=== PATIENT | female | born 1955 | race Hispanic/Latino ===

== ENCOUNTER 2019-07-18 09:24 | Inpatient (IN) | payer OTHER ==
[2019-07-18] VITALS (19 sets, daily range): BP systolic 108–146; BP diastolic 55–78
[~2019-07-18] VITALS: Ht 154.9 cm; Wt 83.2 kg
[2019-07-18] MEDS ORDERED: ACETAMINOPHEN 325 MG TAB ONE (11:36)
[2019-07-18 11:39] LABS: PARTIAL THROMBOPLASTIN TIME 30.1 SEC (26.3-35.5); PROTHROMBIN TIME 10.5 SEC (9.6-11.6)
[2019-07-18] MEDS ORDERED: ACETAMINOPHEN 325 MG TAB PO SCH (11:45)
[2019-07-18] MEDS ORDERED: ONDANSETRON HCL 4 MG/2 ML VIAL ONE (12:14)
[2019-07-18] MEDS ORDERED: ONDANSETRON HCL 4 MG/2 ML VIAL IVP PRN (12:30)
--- NOTE | 2019-07-18 13:43 | NUR ---
DC PLAN VISITED WITH PATIENT. PATIENT LIVES WITH DAUGHTER. PATIENT HAS NO SERVICES OR DME'S. FEELS SAFE TO RETURN HOME. PATIENT GOES TO DR. GROVES IN THE [facility]. FEELS SAFE TO RETURN HOME. Addendum: 07/18/19 at 1344 by ADRIAN LUDWIG RN CM Amended: Links added.
[2019-07-18] MEDS ORDERED: SODIUM BICARB 8.4% 50ML SYRINGE IVP ONE (14:23)
[2019-07-18] MEDS ORDERED: CALCIUM CHLORIDE 100 MG/ML 10 ML SYG IVP ONE (14:23)
[2019-07-18] MEDS ORDERED: AMINOCAPROIC ACID 250 MG/ML 20 ML VIAL IV ONE (14:23)
[2019-07-18] MEDS ORDERED: PHENYLEPHRINE HCL 10 MG/ML 1ML VIAL IV ONE (14:23)
[2019-07-18] MEDS ORDERED: MANNITOL 25% 50ML VIAL IV ONE (14:23)
[2019-07-18] MEDS ORDERED: HEPARIN SODIUM 1000UNIT/ML 10ML VIAL IV ONE (14:23)
[2019-07-18] MEDS ORDERED: MAGNESIUM SULFATE 1 GM/2 ML VIAL IM ONE (14:23)
[2019-07-18] MEDS ORDERED: ALBUMIN (HUMAN) 25% 50 ML IV ONE (14:23)
[2019-07-18] MEDS ORDERED: LIDOCAINE PF 2% 5ML ABBOJECT IVP ONE (14:23)
[2019-07-18] MEDS ORDERED: BIVALIRUDIN 250 MG/VIAL IV ONE (17:13)
[2019-07-18] MEDS ORDERED: NITROGLYCERIN 5 MG/ML 10 ML VIAL IV ONE (17:13)
[2019-07-18] MEDS ORDERED: MIDAZOLAM HCL 1 MG/ML 2ML VIAL ONE (17:14)
[2019-07-18] MEDS ORDERED: IOHEXOL-350 50ML VIAL IV ONE ×2 (17:14→18:21)
[2019-07-18] MEDS ORDERED: IOHEXOL 350 MG/ML 100ML INFUS..BTL IV ONE (17:14)
[2019-07-18] MEDS ORDERED: LIDOCAINE HCL 2% 20ML ONE (17:14)
[2019-07-18] MEDS ORDERED: FENTANYL CITRATE PF 50 MCG/1 ML 2ML VIAL ONE (17:14)
[2019-07-18] MEDS ORDERED: METHYLPREDNISOLONE SOD SUCC 125MG/2ML VIAL ONE (17:36)
[2019-07-18] MEDS ORDERED: NICARDIPINE HCL 25 MG/10 ML ML IV ONE (17:44)
[2019-07-18] MEDS ORDERED: HEPARIN SODIUM 1000UNIT/ML 10ML VIAL ONE (17:44)
[2019-07-18] MEDS ORDERED: ATROPINE SULFATE 0.1 MG/ML 10 ML SYG IVP ONE (18:26)
[2019-07-18] MEDS ORDERED: NITROGLYCERIN 50 MG/D5% WATER 1 BOT ONE (18:39)
[2019-07-18] MEDS ORDERED: PROTAMINE SULFATE 10 MG/ML 25ML VIAL IV ONE (18:46)
[2019-07-18] MEDS ORDERED: LABETALOL 20 MG/4 ML DISP.SYRIN IV ONE (19:01)
[2019-07-18] MEDS ORDERED: CEFAZOLIN SODIUM 1 GM VIAL IVP PRN (21:15)
[2019-07-18] MEDS ORDERED: INSULIN HUMULIN R 100 UNIT/ML 3ML ONE (21:31)
[2019-07-18] MEDS ORDERED: SODIUM CHLORIDE 0.9% 1000ML 1,000 ML IV ONE (21:31)
[2019-07-18] MEDS ORDERED: LABETALOL HCL 5 MG/ML 20ML VIAL IV ONE (21:58)
[2019-07-19] VITALS (25 sets, daily range): BP systolic 100–140; BP diastolic 45–71
[2019-07-19 04:03] LABS: HEMATOCRIT 34.9 % (36-48); MEAN CORPUSCULAR HEMOGLOBIN 26.9 pg (27.0-33.0); MEAN CORPUSCULAR HGB CONC 34.3 g/dL (32.0-36.0); MEAN CORPUSCULAR VOLUME 78.6 fL (79-99); PLATELET COUNT (AUTO) 170 K/uL (130-400); RED BLOOD CELL COUNT(AUTO) 4.44 MIL/uL (4.00-5.50); RED CELL DISTRIBUTION WIDTH 13.5 % (11.0-15.5); WHITE BLOOD COUNT (AUTO) 7.4 K/uL (4.8-10.8)
[2019-07-19 04:07] LABS: HEMOGLOBIN A1C 9.6 % (4.0-6.0)
[2019-07-19 04:15] LABS: INR 1.01 (0.85-1.15); PARTIAL THROMBOPLASTIN TIME 28.2 SEC (26.3-35.5); PROTHROMBIN TIME 10.6 SEC (9.6-11.6)
[2019-07-19 04:16] LABS: B-TYPE NATRIURETIC PEPTIDE 134 pg/mL (0-100)
[2019-07-19 04:19] LABS: CREATININE 0.9 mg/dL (0.5-1.5); POTASSIUM 3.9 mmol/L (3.5-5.1)
[2019-07-19] MEDS ORDERED: INSULIN HUMULIN R 100 UNIT/ML 3ML SQ SCH (07:30)
[2019-07-19] MEDS ORDERED: NOREPINEPHRINE BITARTRATE 8 MG/NS 250ML IV SCH ×2 (12:45)
[2019-07-19] MEDS ORDERED: SODIUM CHLORIDE 0.9% 1000ML 1,000 ML IV ONE (12:55)
[2019-07-19] MEDS ORDERED: EPINEPHRINE 8 MG in SODIUM CHLORIDE 0.9% 250 ML IV SCH (13:00)
[2019-07-19] MEDS ORDERED: AMINOCAPROIC ACID 15,000 MG in SODIUM CHLORIDE 0.9% 500ML 500 ML IV SCH (13:00)
--- NOTE | 2019-07-19 15:10 | NUR ---
patient pt c/o chest pain that lasted 2 minutes. vs stable , dr. gutierrez notified further orders given and will be carried out. family at bedside. dr. gutierrez evaluated patient. patient connected to bedside monitor
[2019-07-19] MEDS ORDERED: MIDAZOLAM HCL 1 MG/ML 2ML VIAL ONE ×2 (15:19→16:44)
[2019-07-19] MEDS ORDERED: PAPAVERINE HCL 30 MG/ML 2ML VIAL ONE (15:39)
[2019-07-19] MEDS ORDERED: BACITRACIN 50,000 UNIT VIAL ONE (15:40)
[2019-07-19] MEDS ORDERED: NITROGLYCERIN 50 MG/D5% WATER 1 BOT ONE (16:24)
[2019-07-19] MEDS ORDERED: SODIUM BICARB 50MEQ 50ML VIAL ONE (16:24)
[2019-07-19] MEDS ORDERED: ROCURONIUM 10MG/1ML SYR 10 MG/ML ML ONE ×2 (16:28→16:44)
[2019-07-19] MEDS ORDERED: MIDAZOLAM HCL 1 MG/ML 2ML VIAL IVPB SCH (16:30)
[2019-07-19] MEDS ORDERED: HEPARIN SODIUM 1000UNIT/ML 10ML VIAL ONE ×2 (16:43→18:54)
[2019-07-19] MEDS ORDERED: PROTAMINE SULFATE 10 MG/ML 25ML VIAL IV ONE (16:43)
[2019-07-19] MEDS ORDERED: LIDOCAINE PF 2% 5ML ABBOJECT ONE (16:43)
[2019-07-19] MEDS ORDERED: ESMOLOL HCL 10 MG/ML 10 ML VIAL ONE (16:43)
[2019-07-19] MEDS ORDERED: EPINEPHRINE 1 MG/ML AMPULE ONE (16:43)
[2019-07-19] MEDS ORDERED: AMINOCAPROIC ACID 250 MG/ML 20 ML VIAL IV ONE (16:43)
[2019-07-19] MEDS ORDERED: NOREPINEPHRINE BITARTRATE 1 MG/1 ML ML IV ONE (16:43)
[2019-07-19] MEDS ORDERED: PROPOFOL 10 MG/ML 20ML VIAL IV ONE (16:44)
[2019-07-19] MEDS ORDERED: FENTANYL CITRATE PF 50 MCG/1 ML 5ML AMP IV ONE ×3 (16:44→19:27)
[2019-07-19] MEDS ORDERED: ETOMIDATE 2 MG/ML 10 ML VIAL ONE (16:44)
[2019-07-19] MEDS ORDERED: AMIODARONE HCL 50 MG/ML 3 ML VIAL ONE (16:46)
[2019-07-19 17:27] LABS: ABG BASE EXCESS -2.1 mmol/L (-2.0-3.0); ABG HCO3 23.3 mmol/L (21.0-28.0); ABG OXYGEN SATURATION 99.3 % (95.0-99.0); ABG PCO2 42 mmHg (32-45)
[2019-07-19] MEDS ORDERED: DELNIDO FORMULA 0 BAG IV ONE (17:35)
[2019-07-19 18:50] LABS: ABG BASE EXCESS -1.4 mmol/L (-2.0-3.0); ABG HCO3 22.3 mmol/L (21.0-28.0); ABG OXYGEN SATURATION 98.8 % (95.0-99.0); ABG PCO2 33 mmHg (32-45)
[2019-07-19 19:15] LABS: ABG BASE EXCESS -4.4 mmol/L (-2.0-3.0); ABG HCO3 19.3 mmol/L (21.0-28.0); ABG OXYGEN SATURATION 98.8 % (95.0-99.0); ABG PCO2 29 mmHg (32-45)
[2019-07-19] MEDS ORDERED: METOPROLOL TARTRATE 1 MG/ML 5ML VIAL IV ONE (19:30)
[2019-07-19 19:33] LABS: ABG BASE EXCESS -1.9 mmol/L (-2.0-3.0); ABG HCO3 19.2 mmol/L (21.0-28.0); ABG OXYGEN SATURATION 98.7 % (95.0-99.0); ABG PCO2 21 mmHg (32-45)
[2019-07-19 19:52] LABS: ABG BASE EXCESS -5.7 mmol/L (-2.0-3.0); ABG HCO3 18.1 mmol/L (21.0-28.0); ABG OXYGEN SATURATION 98.8 % (95.0-99.0); ABG PCO2 29 mmHg (32-45)
[2019-07-19] MEDS ORDERED: FENTANYL CITRATE PF 50 MCG/1 ML 2ML VIAL ONE (20:02)
[2019-07-19] MEDS ORDERED: SODIUM CHLORIDE 0.9% 500ML 500 ML IV SCH (20:09)
[2019-07-19] MEDS ORDERED: MAGNESIUM 2GM PREMIX 50ML 50 ML IV PRN (20:15)
[2019-07-19] MEDS ORDERED: TRAMADOL HCL 50 MG TABLET PO PRN ×2 (20:15)
[2019-07-19] MEDS ORDERED: EPINEPHRINE 8 MG in DEXTROSE 5%-WATER 250 ML IV PRN (20:15)
[2019-07-19] MEDS ORDERED: DEXTROSE 50%-WATER 50 ML DISP.SYRIN IV PRN (20:15)
[2019-07-19] MEDS ORDERED: ACETAMINOPHEN 325 MG TAB PO PRN ×2 (20:15)
[2019-07-19] MEDS ORDERED: POTASSIUM PHOS 15 mMOL+NS250ML 250 ML IV PRN (20:15)
[2019-07-19] MEDS ORDERED: ONDANSETRON HCL 4 MG/2 ML VIAL IV PRN (20:15)
[2019-07-19] MEDS ORDERED: PROPOFOL 1000 MG/100 ML 100 ML IV PRN (20:15)
[2019-07-19] MEDS ORDERED: GLUCAGON 1MG KIT 1 MG ML IM PRN (20:15)
[2019-07-19] MEDS ORDERED: NOREPINEPHRINE 4MG/NS 250ML 250 ML IV PRN (20:15)
[2019-07-19] MEDS ORDERED: ACETAMINOPHEN 650 MG SUPPOSITORY RC PRN (20:15)
[2019-07-19] MEDS ORDERED: NITROGLYCERIN 50 MG/D5% WATER 250 BOT IV SCH (20:15)
[2019-07-19] MEDS ORDERED: SODIUM CHLORIDE 0.9% 1000ML 1,000 ML IV SCH (20:15)
[2019-07-19] MEDS ORDERED: SODIUM CHLORIDE 0.9% 250 ML IV PRN (20:15)
[2019-07-19] MEDS ORDERED: AMINOCAPROIC ACID 15,000 MG in SODIUM CHLORIDE 0.9% 250 ML IV SCH (20:15)
[2019-07-19] MEDS ORDERED: MORPHINE SULFATE 2 MG/ML 1ML SYG IV PRN (20:15)
[2019-07-19] MEDS ORDERED: SODIUM CHLORIDE 0.9% 10 ML VIAL IVP PRN (20:15)
[2019-07-19] MEDS ORDERED: ALBUMIN (HUMAN) 5% 250 ML IV PRN (20:15)
[2019-07-19] MEDS ORDERED: MORPHINE SULFATE 4 MG/1ML SYG IV PRN (20:15)
[2019-07-19 21:01] LABS: ABG BASE EXCESS -0.3 mmol/L (-2.0-3.0); ABG HCO3 23.2 mmol/L (21.0-28.0); ABG OXYGEN SATURATION 96.2 % (95.0-99.0); ABG PCO2 34 mmHg (32-45)
[2019-07-19 21:23] LABS: HEMATOCRIT 33.5 % (36-48); MEAN CORPUSCULAR HEMOGLOBIN 27.2 pg (27.0-33.0); MEAN CORPUSCULAR HGB CONC 33.7 g/dL (32.0-36.0); MEAN CORPUSCULAR VOLUME 80.6 fL (79-99); PLATELET COUNT (AUTO) 125 K/uL (130-400); RED BLOOD CELL COUNT(AUTO) 4.15 MIL/uL (4.00-5.50); RED CELL DISTRIBUTION WIDTH 13.6 % (11.0-15.5); WHITE BLOOD COUNT (AUTO) 22.6 K/uL (4.8-10.8)
[2019-07-19 21:35] LABS: CREATININE 0.8 mg/dL (0.5-1.5); INR 1.29 (0.85-1.15); MAGNESIUM 3.1 mg/dL (1.80-2.40); PARTIAL THROMBOPLASTIN TIME 25.7 SEC (26.3-35.5); PHOSPHORUS 3.7 mg/dL (2.5-4.9); POTASSIUM 3.9 mmol/L (3.5-5.1); PROTHROMBIN TIME 13.4 SEC (9.6-11.6)
[2019-07-19] MEDS: CALCIUM GLUCONATE 1 GM in SODIUM CHLORIDE 0.9% 50 ML IV PRN ×2 (21:53→22:44)
[2019-07-19] MEDS: FAMOTIDINE/PF 20 MG/2 ML VIAL IV SCH (21:57)
[2019-07-19] MEDS: INSULIN REGULAR, HUMAN 3ML 100 UNIT in SODIUM CHLORIDE 0.9% 99 ML IV SCH ×2 (21:59)
[2019-07-19 22:39] LABS: ABG BASE EXCESS -3.3 mmol/L (-2.0-3.0); ABG HCO3 20.7 mmol/L (21.0-28.0); ABG OXYGEN SATURATION 98.9 % (95.0-99.0); ABG PCO2 34 mmHg (32-45)
[2019-07-19] MEDS: POTASSIUM CHLORIDE 20MEQ/100ML 100 ML IV PRN (22:43)
[2019-07-19] MEDS: SODIUM BICARB 50MEQ 50ML VIAL IV PRN (22:44)
[2019-07-20] VITALS (71 sets, daily range): BP systolic 70–158; BP diastolic 31–81
[2019-07-20 00:21] LABS: ABG OXYGEN SATURATION 97.5 % (95.0-99.0); ABG PCO2 36 mmHg (32-45)
[2019-07-20] MEDS: SODIUM BICARB 50MEQ 50ML VIAL IV PRN (00:25)
[2019-07-20] MEDS: CALCIUM GLUCONATE 1 GM in SODIUM CHLORIDE 0.9% 50 ML IV PRN (00:25)
[2019-07-20 00:57] LABS: ABG BASE EXCESS -0.2 mmol/L (-2.0-3.0); ABG HCO3 25.2 mmol/L (21.0-28.0); ABG PCO2 44 mmHg (32-45)
[2019-07-20] MEDS: CEFAZOLIN SODIUM 1 GM VIAL IV SCH ×3 (01:05→17:24)
[2019-07-20 01:47] LABS: ABG BASE EXCESS 1.5 mmol/L (-2.0-3.0); ABG HCO3 26.6 mmol/L (21.0-28.0); ABG OXYGEN SATURATION 98.2 % (95.0-99.0); ABG PCO2 43 mmHg (32-45)
[2019-07-20] MEDS ORDERED: ALBUMIN (HUMAN) 5% 250 ML IV ONE (01:56)
[2019-07-20 03:39] LABS: ABG BASE EXCESS 1.4 mmol/L (-2.0-3.0); ABG HCO3 26.3 mmol/L (21.0-28.0); ABG OXYGEN SATURATION 97.2 % (95.0-99.0); ABG PCO2 42 mmHg (32-45)
[2019-07-20 04:50] LABS: BASOPHILS % (AUTO) 0.2 % (0.0-5.0); HEMATOCRIT 33.5 % (36-48); LYMPHOCYTES % (AUTO) 9.3 % (21.0-51.0); MEAN CORPUSCULAR HEMOGLOBIN 30.7 pg (27.0-33.0); MEAN CORPUSCULAR VOLUME 90.2 fL (79-99); MONOCYTES % (AUTO) 11.9 % (3.0-13.0); NEUTROPHILS % (AUTO) 78.6 % (40.0-77.0); NUCLEATED RED BLOOD CELLS 0.1 % (0.0-0.19); PLATELET COUNT (AUTO) 115 K/uL (130-400); RED BLOOD CELL COUNT(AUTO) 3.71 MIL/uL (4.00-5.50); RED CELL DISTRIBUTION WIDTH 13.6 % (11.0-15.5); WHITE BLOOD COUNT (AUTO) 10.1 K/uL (4.8-10.8)
[2019-07-20 05:04] LABS: INR 1.12 (0.85-1.15); PARTIAL THROMBOPLASTIN TIME 47.3 SEC (26.3-35.5); PLATELET MORPHOLOGY COMMENT ADEQUATE; PROTHROMBIN TIME 11.7 SEC (9.6-11.6)
[2019-07-20 05:11] LABS: CREATININE 1.3 mg/dL (0.5-1.5); MAGNESIUM 1.8 mg/dL (1.80-2.40); PHOSPHORUS 2.6 mg/dL (2.5-4.9); POTASSIUM 4.2 mmol/L (3.5-5.1)
[2019-07-20] MEDS ORDERED: CALCIUM GLUCONATE 1 GM/10 ML VIAL IV ONE (06:00)
[2019-07-20] MEDS: ASPIRIN 325MG EC TAB 325 MG TABLET.DR PO SCH (09:56)
[2019-07-20] MEDS: FAMOTIDINE/PF 20 MG/2 ML VIAL IV SCH ×2 (09:56→19:47)
[2019-07-20] MEDS: INSULIN REGULAR, HUMAN 3ML 100 UNIT in SODIUM CHLORIDE 0.9% 99 ML IV SCH ×2 (10:51)
[2019-07-20] MEDS: MIDODRINE HCL 5 MG TABLET PO SCH ×2 (13:39→19:47)
--- NOTE | 2019-07-20 17:15 | NUR ---
SPOKE WITH PATIENT AND UNABLE TO INFORM ME OF HOME MEDS SHE TAKES. NO FAMILY PRESENT. WILL FOLLOW UP.
[2019-07-20] MEDS: ATORVASTATIN CALCIUM 40 MG TABLET PO SCH (19:47)
[2019-07-21] VITALS (22 sets, daily range): BP systolic 101–169; BP diastolic 38–76
[2019-07-21 04:17] LABS: BASOPHILS % (AUTO) 0.4 % (0.0-5.0); EOSINOPHILS % (AUTO) 0.1 % (0.0-8.0); HEMATOCRIT 26.7 % (36-48); MEAN CORPUSCULAR HEMOGLOBIN 27.1 pg (27.0-33.0); MEAN CORPUSCULAR HGB CONC 33.9 g/dL (32.0-36.0); MONOCYTES % (AUTO) 6.5 % (3.0-13.0); NUCLEATED RED BLOOD CELLS 0.2 % (0.0-0.19); PLATELET COUNT (AUTO) 102 K/uL (130-400); RED BLOOD CELL COUNT(AUTO) 3.34 MIL/uL (4.00-5.50); RED CELL DISTRIBUTION WIDTH 13.9 % (11.0-15.5)
[2019-07-21 04:34] LABS: ALBUMIN 2.5 g/dL (3.5-5.0); BILIRUBIN,TOTAL 0.8 mg/dL (0.2-1.0); CREATININE 0.8 mg/dL (0.5-1.5); POTASSIUM 3.3 mmol/L (3.5-5.1); TOTAL PROTEIN, SERUM 5.6 g/dL (6.0-8.3)
[2019-07-21] MEDS: POTASSIUM CHLORIDE 20MEQ/100ML 100 ML IV PRN ×4 (05:50→20:04)
[2019-07-21] MEDS ORDERED: METOPROLOL TARTRATE 25 MG TAB PO SCH (09:00)
[2019-07-21] MEDS: FAMOTIDINE/PF 20 MG/2 ML VIAL IV SCH ×2 (09:59→21:35)
[2019-07-21] MEDS: MIDODRINE HCL 5 MG TABLET PO SCH (09:59)
[2019-07-21] MEDS: ASPIRIN 325MG EC TAB 325 MG TABLET.DR PO SCH (09:59)
--- NOTE | 2019-07-21 11:00 | NUR ---
Physician Rounding Dr. Scales at bedside around 1140. Updated on the patients status emphasized on the neuro states of being lethargic and weak strength. He gave verbal orders as the were imputed into the system. Also ordered for all lines to be removed a-line, chest tubes, nickerson, and central line Addendum: 07/21/19 at 1349 by CAROLYN WOODS RN Dr. Steven rounded at bedside around 0930. Informed about the patients labs, neuro status, and plan of care. Addendum: 07/21/19 at 1353 by CAROLYN WOODS RN Dr. Colin rounded around 1200. Was notified about the patients status and neuro status also expressed some concern about possible aspiration. He ordered an abg and for speech to follow up tomorrow morning.
[2019-07-21] MEDS: INSULIN HUMULIN R 100 UNIT/ML 3ML SQ SCH ×3 (11:30→21:00)
[2019-07-21 12:20] LABS: ABG HCO3 30.1 mmol/L (21.0-28.0); ABG OXYGEN SATURATION 87.9 % (95.0-99.0); ABG PCO2 46 mmHg (32-45)
[2019-07-21] MEDS: FUROSEMIDE 10 MG/ML 2ML VIAL IV SCH (14:04)
--- NOTE | 2019-07-21 19:00 | NUR ---
ASSESSMENT ASSUMED CARE. ALTERED MENTAL STATUS. NOT FOLLOWING COMMANDS. REPEATS SAME WORDS OVER AND OVER AGAIN. REORIENTED TO PLACE, TIME AND SITUATION. PULLS OFF VENTI MASK. PULLS HERSELF BY HOLDING ONTO BED RAILS. STERNAL PRECAUTIONS IN PLACE. REPOSITIONED FOR COMFORT. BEDSIDE MONITORING. SINUS TACH HR 106. WILL CONTINUE TO MONITOR.
[2019-07-21] MEDS ORDERED: LIDOCAINE HCL-MPF 1% 2ML VIAL ONE (19:54)
[2019-07-21] MEDS: METOPROLOL TARTRATE 25 MG TAB PO SCH (21:35)
[2019-07-21] MEDS: ATORVASTATIN CALCIUM 40 MG TABLET PO SCH (21:35)
[2019-07-22] VITALS (12 sets, daily range): BP systolic 98–156; BP diastolic 44–75
[2019-07-22] MEDS: FUROSEMIDE 10 MG/ML 2ML VIAL IV SCH (00:52)
[2019-07-22 05:38] LABS: BASOPHILS % (AUTO) 0.3 % (0.0-5.0); EOSINOPHILS % (AUTO) 0.1 % (0.0-8.0); LYMPHOCYTES % (AUTO) 11.1 % (21.0-51.0); MEAN CORPUSCULAR HEMOGLOBIN 28.2 pg (27.0-33.0); MEAN CORPUSCULAR VOLUME 82.9 fL (79-99); NEUTROPHILS % (AUTO) 82.5 % (40.0-77.0); PLATELET COUNT (AUTO) 107 K/uL (130-400); RED BLOOD CELL COUNT(AUTO) 3.13 MIL/uL (4.00-5.50); RED CELL DISTRIBUTION WIDTH 13.7 % (11.0-15.5); WHITE BLOOD COUNT (AUTO) 12.4 K/uL (4.8-10.8)
[2019-07-22 05:54] LABS: CREATININE 0.8 mg/dL (0.5-1.5); POTASSIUM 4.1 mmol/L (3.5-5.1)
--- NOTE | 2019-07-22 07:00 | NUR ---
PT RECEIVED IN BEDSIDE CHAIR, ALERT TO SELF AND . PT STATES SHE IS IN HOSPITAL. PER REPORT PHYSICIANS ON CASE ARE AWARE OF MENTAL STATUS. PT IS POST #3 CABG X2. ALL LINES HAVE BEEN DISCONTINUED. DRESSING TO STERNAL INCISION IS DRY AND INTACT. TELE WITH SR 98, O2 4 L VIA NC. POC FOR TODAY TO INCLUDE SPEECH EVALUATION. WILL CONT TO MONITOR CLOSELY. Addendum: 07/22/19 at 1030 by ALISSON VALDVIIA RN RN PATIENT IS DUE TO VOID BY 1500.
[2019-07-22] MEDS: INSULIN HUMULIN R 100 UNIT/ML 3ML SQ SCH ×4 (07:30→21:14)
--- NOTE | 2019-07-22 08:20 | NUR ---
MD ROUNDS DR. MOREL IN TO SEE PATIENT. NEW ORDERS RECEIVED TO BE RONNY OUT.
--- NOTE | 2019-07-22 08:50 | NUR ---
ROUNDS DR. LEVY IN TO SEE PATIENT. MD NOTED A CHANGE FAR MENTAL STATUS. I UPDATED HIM ON NEW ORDERS FROM DR. MOREL.
[2019-07-22] MEDS: FUROSEMIDE 20 MG TABLET PO SCH ×2 (08:56→17:16)
[2019-07-22] MEDS: ASPIRIN 81MG TAB.CHEW PO SCH (08:57)
[2019-07-22] MEDS: METOPROLOL TARTRATE 25 MG TAB PO SCH ×2 (08:57→20:29)
[2019-07-22] MEDS: ENOXAPARIN SODIUM 40 MG/0.4 ML SYRINGE SQ SCH (08:58)
[2019-07-22] MEDS: FAMOTIDINE/PF 20 MG/2 ML VIAL IV SCH (08:58)
[2019-07-22] MEDS ORDERED: POTASSIUM CHLORIDE 20MEQ/100ML 100 ML IV SCH (09:00)
[2019-07-22] MEDS ORDERED: ENOXAPARIN SODIUM 60 MG/0.6 ML SQ SCH (09:00)
[2019-07-22] MEDS ORDERED: ENOXAPARIN SODIUM 30 MG/0.3 ML SQ SCH (09:00)
[2019-07-22] MEDS ORDERED: POTASSIUM CHLORIDE 10MEQ/100ML 10 MEQ/100 ML ML IV SCH (09:00)
--- NOTE | 2019-07-22 09:00 | NUR ---
DYSPHAGIA EVAL COMPLETED. +S/S OF ASPIRATION WITH THIN LIQUIDS VIA STRAW. RECOMMEND MECHANICAL SOFT/CHOPPED, THIN LIQUIDS; PILLS CRUSHED. RECOMMENDATIONS: 1. DYSPHAGIA THERAPY 3-5X WEEK TO INCREASE ORAL MOTOR STRENGTH AND PHARYNGEAL SWALLOW: LTG#1: Pt WILL TOLERATE LEAST RESTRICTIVE DIET TO MEET NUTRITION/HYDRATION WITH NO S/S OF ASPIRATION. LTG#2: SKILLED EDUCATION Pt/FAMILY/STAFF STG#1: Pt WILL PARTICIPATE IN LARYNGEAL ELEVATION/EXCURSION EXERCISES WITH 80% ACCURACY. STG#2: Pt WILL PARTICIPATE IN TONGUE BASE RETRACTION EXERCISES WITH 80% ACCURACY. STG#3: Pt WILL PARTICIPATE IN ORAL MOTOR EXERCISES WITH 80% ACCURACY. STG#4: Pt WILL TOLERATE MECH SOFT/CHOPPED, THIN LIQUIDS WITH NO OVER S/S OF ASPIRATION. STG#5: Pt WILL TOLERATE THERAPEUTIC TRIALS OF ADVANCED TEXTURE OF REGULAR TRIALS WITH NO S/S OF ASPIRATION STG#6: SKILLED EDUCATION Pt/FAMILY/STAFF. Addendum: 07/22/19 at [address] Amended: Links added.
--- NOTE | 2019-07-22 09:15 | NUR ---
COGNITIVE-LINGUISTIC EVAL COMPLETED. Pt PRESENTS WITH MODERATE COGNITIVE AND AUDITORY COMPREHENSION DEFICITS. EVALUATION: Pt AAOX2 AT THIS TIME. Pt WITH DIFFICULTY STATING BIOGRAPHICAL INFORMATION SUCH AGE AND DATE OF . TURNER MACHINE OPERATOR REORIENTED Pt TO SITUATION AND TIME. PT ABLE TO FOLLOW SIMPLE COMMANDS AND REQUEST WANTS AND NEEDS. Pt WITH DIFFICULTY ANSWERING ABSTRACT QUESTIONS. SPEECH CHARACTERIZED BY REPETITION OF RESPONSES AFTER DIFFERENT QUESTIONS WERE ASKED. Pt WITH DIFFICULTY ANSWERING OPEN ENDED QUESTIONS. Pt ABLE TO RESPOND APPROPRIATELY TO YES/NO QUESTIONS. Pt WITH POOR IMMEDIATE AND SHORT TERM MEMORY. Pt INTELLIGIBLE WITH 90% IN RUNNING SPEECH. SKILLED SPEECH THERAPY IS RECOMMENDED AT THIS TIME TO TARGET AFOREMENTIONED WEAKNESS. RECOMMENDATIONS: 1.SKILLED SPEECH THERAPY RECOMMENDED TARGETING COGNITIVE-LINGUISTIC GOALS: LTG#1: Pt WILL INCREASE COGNITIVE-LINGUISTIC ABILITIES TO PARTICIPATE IN ADLs WITH MODERATE ASSISTANCE. *STG#1: Pt WILL BE AAOX4 INDEPENDENTLY. *STG#2: Pt WILL FOLLOW 3 STEP COMMANDS WITH 80% ACCURACY. *STG#3: PT WILL ANSWER OPEN ENDED QUESTIONS WITH 80% ACCURACY. *STG#4: PT Pt WILL RECALL DETAILS AFTER A SHORT DELAY WITH 80% ACCURACY. *STG#5: PT WILL COMPLETE CONVERGENT/DIVERGENT NAMING TASK WITH 80% ACCURACY. G-CODES SPOKEN LANGUAGE COMPREHENSION: [id number] Addendum: 07/22/19 at [address] [facility] Amended: Links added.
--- NOTE | 2019-07-22 10:27 | NUR ---
PATIENT'S FAMILY ARRIVED TO VISIT PATIENT. I UPDATED THEM ON STATUS. PER DAUGHTER, BEN, STATES HER MOTHER MORE ALERT TODAY. I INFORMED THEM THAT PATIENT WILL BE TRANSFERRED OUT OF ICU SOON A ROOM IS AVAILABLE. REVIEWED WITH THEM SPEECH RECOMMENDATIONS.
--- NOTE | 2019-07-22 14:43 | NUR ---
BLADDER SCAN PERFORMED WITH 109 ML URINE NOTED. WILL CONTINUE TO MONITOR. PT WITH NO C/O LOWER ABDOMINAL PAIN OR URGE TO VOID.
--- NOTE | 2019-07-22 15:36 | NUR ---
SPOKE WITH DR. LEVY VIA TELEPHONE, INFORMED HIM PATIENT WAS D/T VOID BY 1500 AND SHE HAS NOT VOIDED. BLADDER SCAN WAS PERFORMED AND NOTED WITH 109 ML. NEW ORDERS FROM MD TO BLADDER SCAN AGAIN IN 1 HR, IF GREATER THAN 200ML, STRAIGHT CATH TO BE DONE. ORDERS TO BE CARRIED OUT. PATIENT MADE AWARE AND NODDED UNDERSTANDING.
--- NOTE | 2019-07-22 16:50 | NUR ---
BLADDER SCAN PRESENTED WITH VOLUME OF 210ML. DRAINED ABOUT 500 ML CLEAR YELLOW URINE. UPDATED DR. LEVY, NEW ORDERS RECEIVED.
--- NOTE | 2019-07-22 17:09 | NUR ---
DC PLAN [facility] 07/19 NO INSURANCE. PLACED ORANGE PAPER IN CHART NO SNF BENEFITS. LET NURSE KNOW. Addendum: 07/22/19 at 1710 by ADRIAN LUDWIG RN CM Amended: Links added.
--- NOTE | 2019-07-22 18:34 | NUR ---
PATHOLOGY RESULTS STILL PENDING. SPOKE WITH MEN'S FURNISHINGS SALESPERSON.
--- NOTE | 2019-07-22 19:00 | NUR ---
ASSESSMENT ASSUMED CARE. ALERT & ORIENTED X2 TO PERSON AND PLACE. REORIENTED TO DATE & TIME. EPISODES OF CONFUSION AND FORGETFULNESS. NO DISTRESS NOTED. UNLABORED RESPIRATIONS WITH O2 L NC & O2 SAT 99%. MARMOLEJO CATHETER IN PLACE & SECURE WITH BLADDER TRAINING IN PROGRESS. CATHETER TUBE CLAMPED AT THIS TIME. REINFORCED FALL PREVENTION MEASURES AND STERNAL PRECAUTIONS. PATIENT'S ROOM ACROSS FROM NURSE'S STATION WITH DOOR AJAR FOR CLOSE MONITORING. BED ALARM TURNED ON. Addendum: 07/22/19 at 2008 by YARIEL CONNOR RN RN Amended: Links added.
--- NOTE | 2019-07-22 19:49 | NUR ---
DAUGHTER AT BEDSIDE ALL TEACHINGS ADDRESSED WITH DAUGHTER. PATIENT WITH EPISODES OF ALTERED MENTAL STATUS AND REQUIRES REINFORCEMENT OF TEACHING TOPICS. Addendum: 07/22/19 at 1950 by YARIEL CONNOR RN RN Amended: Links added.
[2019-07-22] MEDS: FAMOTIDINE 20MG TAB 20 MG TAB PO SCH (20:29)
[2019-07-22] MEDS: ATORVASTATIN CALCIUM 40 MG TABLET PO SCH (20:29)
--- NOTE | 2019-07-22 23:59 | NUR ---
episode of moderate anxiety removing gown. attempting to sit up on side of bed. re-oriented to place, date, time & post cabg status. pt became oriented & stated she remembers that she had surgery. became compliant & calm. states being unable to rest. gave tylenol 650mg po as per prn order. repositioned for comfort. Addendum: 07/23/19 at 0002 by YARIEL CONNOR RN RN Amended: Links added.
[2019-07-23] VITALS: BP 129/61
[2019-07-23 03:57] LABS: HEMATOCRIT 23.9 % (36-48); MEAN CORPUSCULAR HEMOGLOBIN 27.6 pg (27.0-33.0); MEAN CORPUSCULAR HGB CONC 33.8 g/dL (32.0-36.0); MEAN CORPUSCULAR VOLUME 81.4 fL (79-99); NUCLEATED RED BLOOD CELLS 0.1 % (0.0-0.19); PLATELET COUNT (AUTO) 136 K/uL (130-400); RED BLOOD CELL COUNT(AUTO) 2.93 MIL/uL (4.00-5.50); RED CELL DISTRIBUTION WIDTH 13.8 % (11.0-15.5)
[2019-07-23 04:00] VITALS: BP 135/70
[2019-07-23 04:00] LABS: % IRON SATURATION 9.1 % (22-44)
[2019-07-23 04:02] LABS: B-TYPE NATRIURETIC PEPTIDE 441 pg/mL (0-100)
[2019-07-23 04:07] LABS: CREATININE 0.8 mg/dL (0.5-1.5); MAGNESIUM 2.1 mg/dL (1.80-2.40); PHOSPHORUS 2.2 mg/dL (2.5-4.9); POTASSIUM 3.7 mmol/L (3.5-5.1)
[2019-07-23] MEDS ORDERED: LIDOCAINE HCL-MPF 1% 2ML VIAL IV PRN (05:15)
[2019-07-23] MEDS ORDERED: PHARMACY COMMUNICATION MISC SCH (05:15)
[2019-07-23] MEDS ORDERED: LIDOCAINE HCL-MPF 1% 2ML VIAL ONE (05:19)
[2019-07-23] MEDS: POTASSIUM CHLORIDE 20MEQ/100ML 100 ML IV PRN (05:20)
[2019-07-23 07:00] VITALS: BP 157/70
--- NOTE | 2019-07-23 07:40 | NUR ---
PT RECEIVED IN BED SIDE CHAIR, CALM AND COOPERATIVE. PT IS AAOX3 TO PERSON, PLACE, MONTH AND YEAR. PT IS MORE ALERT TODAY, RESPONDING APPROPRIATELY. POD#4 CABG X2. MARMOLEJO CATHETER CLAMPED THIS MORNING FOR BLADDER TRAINING WITH EXPECTATION TO REMOVE MARMOLEJO CATHETER. STERNAL DRESSING D/I, NO ACUTE DISTRESS OR C/O PAIN VOICED BY PATIENT. TELE WITH SR 83, O2 2 LITERS VIA NC WITH SATURATIONS 98%. PLAN TO WEAN OFF O2. WILL CONT TO MONITOR.
--- NOTE | 2019-07-23 08:00 | NUR ---
ROUNDS DR. MOREL IN TO SEE PATIENT. UPDATED ON STATUS, NEW ORDERS FROM DR. ROMO. AGREED WITH NEW ORDERS FROM DR. ROMO AND INSTRUCTED TO D/C IV POTASSIUM AND GIVEN PATIENT 20 MEQ PO POTASSIUM x 1. WILL CONT TO MONITOR.
[2019-07-23] MEDS: ENOXAPARIN SODIUM 40 MG/0.4 ML SYRINGE SQ SCH (08:36)
[2019-07-23] MEDS: FAMOTIDINE 20MG TAB 20 MG TAB PO SCH ×2 (08:37→22:49)
[2019-07-23] MEDS: METOPROLOL TARTRATE 25 MG TAB PO SCH ×2 (08:37→22:49)
[2019-07-23] MEDS: FUROSEMIDE 20 MG TABLET PO SCH ×2 (08:38→16:18)
[2019-07-23] MEDS: ASPIRIN 81MG TAB.CHEW PO SCH (08:38)
[2019-07-23] MEDS: INSULIN HUMULIN R 100 UNIT/ML 3ML SQ SCH ×4 (08:43→22:52)
[2019-07-23] MEDS ORDERED: FUROSEMIDE 10 MG/ML 2ML VIAL IV SCH (08:45)
[2019-07-23] MEDS ORDERED: POTASSIUM CHLORIDE 20 MEQ ERTAB PO SCH (09:30)
[2019-07-23] MEDS ORDERED: POTASSIUM CHLORIDE 20 MEQ ERTAB PO ONE (09:35)
[2019-07-23 11:34] VITALS: BP 141/78
--- NOTE | 2019-07-23 13:44 | NUR ---
PT TRANSFERRED TO ROOM 231, REPORT GIVEN TO VICKY PATHAK. ALL BELONGINGS TAKEN ALONG WITH PATIENT, INCLUDING HER PURSE.
--- NOTE | 2019-07-23 13:55 | NUR ---
ARRIVAL TO ROOM 231 VIA CARDIAC CHAIR PT IS AAOX3 NO COMPLAINTS AT THIS TIME, CALL LIGHT WITHIN REACH. SR 80S.
[2019-07-23 15:31] VITALS: BP 117/57
--- NOTE | 2019-07-23 18:15 | NUR ---
ASSISTED BACK TO BED, NO COMPLAINTS FAMILY IS AT BEDSIDE.
[2019-07-23 20:14] VITALS: BP 121/56
[2019-07-23] MEDS: ATORVASTATIN CALCIUM 40 MG TABLET PO SCH (22:50)
[2019-07-24] VITALS (7 sets, daily range): BP systolic 120–134; BP diastolic 48–67
[2019-07-24 04:39] LABS: BASOPHILS % (AUTO) 0.6 % (0.0-5.0); EOSINOPHILS % (AUTO) 4.3 % (0.0-8.0); HEMATOCRIT 26.9 % (36-48); LYMPHOCYTES % (AUTO) 21.9 % (21.0-51.0); MEAN CORPUSCULAR HEMOGLOBIN 27.1 pg (27.0-33.0); MEAN CORPUSCULAR HGB CONC 33.1 g/dL (32.0-36.0); MEAN CORPUSCULAR VOLUME 82.1 fL (79-99); MONOCYTES % (AUTO) 8.4 % (3.0-13.0); NEUTROPHILS % (AUTO) 64.8 % (40.0-77.0); NUCLEATED RED BLOOD CELLS 0.2 % (0.0-0.19); RED BLOOD CELL COUNT(AUTO) 3.28 MIL/uL (4.00-5.50); RED CELL DISTRIBUTION WIDTH 13.8 % (11.0-15.5); WHITE BLOOD COUNT (AUTO) 10.3 K/uL (4.8-10.8)
[2019-07-24 04:52] LABS: CREATININE 0.7 mg/dL (0.5-1.5); POTASSIUM 3.5 mmol/L (3.5-5.1)
[2019-07-24 04:55] LABS: PLATELET COUNT (AUTO) 120 K/uL (130-400)
[2019-07-24 04:57] LABS: B-TYPE NATRIURETIC PEPTIDE 576 pg/mL (0-100)
[2019-07-24] MEDS ORDERED: POTASSIUM CHLORIDE 10% ELIXIR 20 MEQ/15 ML UDCUP PO PRN (05:00)
[2019-07-24] MEDS ORDERED: POTASSIUM CHLORIDE 20 MEQ ERTAB PO PRN (05:00)
[2019-07-24] MEDS ORDERED: POTASSIUM CHLORIDE 20 MEQ ERTAB PO ONE (05:11)
[2019-07-24] MEDS ORDERED: GLIPIZIDE 5 MG TABLET ONE (05:11)
[2019-07-24] MEDS ORDERED: VANCOMYCIN 1GM+NS 250ML 0 ML IV ONE (05:15)
[2019-07-24] MEDS: INSULIN HUMULIN R 100 UNIT/ML 3ML SQ SCH ×4 (05:55→21:26)
[2019-07-24] MEDS: GLIPIZIDE 5 MG TABLET PO SCH (06:06)
[2019-07-24] MEDS: METFORMIN HCL 500 MG TABLET PO SCH ×3 (08:00→17:31)
--- NOTE | 2019-07-24 08:31 | NUR ---
SPEECH THERAPY COMPLETED. PT AAOX4, ABLE TO ANSWER OPEN ENDED QUESTIONS WITH 80% ACCURACY. PT WITH ADEQUATE SAFETY AWARENESS. Pt ABLE TO COMPLETE CONCENTRATION TASKS WITH 80% ACCURACY. Pt PARTICIPATED IN THERAPEUTIC TRIALS OF ADVANCED TEXTURES OF REGULAR SOLIDS AND LIQUIDS VIA STRAW X6 WITH NO OVERT S/S OF ASPIRATION. Pt CURRENTLY BACK TO BASELINE. RECOMMEND DIET UPGRADE TO REGULAR TEXTURE,THIN LIQUIDS. DISCHARGE FROM SKILLED SPEECH THERAPY. Pt HAS MET ALL GOALS AND IS AT BASELINE. Addendum: 07/25/19 at 0835 by JANAE DUMAS, [facility] Amended: Links added.
[2019-07-24] MEDS: FUROSEMIDE 20 MG TABLET PO SCH (09:00)
[2019-07-24] MEDS: METOPROLOL TARTRATE 25 MG TAB PO SCH ×2 (09:00→21:18)
[2019-07-24] MEDS: ASPIRIN 81MG TAB.CHEW PO SCH (09:00)
[2019-07-24] MEDS: FAMOTIDINE 20MG TAB 20 MG TAB PO SCH ×2 (09:00→21:16)
--- NOTE | 2019-07-24 11:00 | NUR ---
DEEP BREATHING, REEDUCATED AND DEMONSTRATED TO PT OF DEEP BREATHING AND INCENTIVE SPIROMETRY. PT HAVING DIFFICULTY DEEP BREATHING.
[2019-07-24] MEDS ORDERED: FUROSEMIDE 10 MG/ML 4ML VIAL IV SCH (11:30)
[2019-07-24] MEDS: ENOXAPARIN SODIUM 40 MG/0.4 ML SYRINGE SQ SCH (11:42)
--- NOTE | 2019-07-24 14:19 | NUR ---
RDSCREEN - LOS X 6 Pt admitted for Nstemi, Hematoma. Left Catheterization, s/p CABG 07/19, Chest tube removal 07/22 as per EMR. Pt with Heart Healthy, Finely Chopped, 75gm CCD. Pt with no GI distress, however dislikes food, as per Pt family member. Recommend to add snacks TID between meals for improved PO intake. Pt with Obesity Grade I (BMI 34.3). Pt monitored labs: Glu 133, BNP 576, Alb 2.5, P 2.2, TIBC 142, Fe 13, %Sat 9.1, Ca 7.8. RD to continue to monitor. Please notify RD as additional nutrition concerns arise. Thank you. Addendum: 07/24/19 at [address] Amended: Links added.
[2019-07-24] MEDS: POTASSIUM CHLORIDE 20 MEQ ERTAB PO SCH ×2 (14:34→21:17)
[2019-07-24] MEDS ORDERED: PHARMACY COMMUNICATION MISC SCH (17:15)
[2019-07-24] MEDS: ATORVASTATIN CALCIUM 40 MG TABLET PO SCH (21:17)
[2019-07-24] MEDS: FUROSEMIDE 10 MG/ML 4ML VIAL IV SCH (21:17)
[2019-07-25 03:28] VITALS: BP 129/55
[2019-07-25] MEDS: FUROSEMIDE 10 MG/ML 4ML VIAL IV SCH ×2 (05:24→13:00)
[2019-07-25] MEDS: INSULIN HUMULIN R 100 UNIT/ML 3ML SQ SCH ×2 (06:31→12:56)
[2019-07-25 07:00] VITALS: BP 117/46
[2019-07-25] MEDS ORDERED: FUROSEMIDE 20 MG TABLET PO SCH (09:00)
[2019-07-25] MEDS: ENOXAPARIN SODIUM 40 MG/0.4 ML SYRINGE SQ SCH (09:01)
[2019-07-25] MEDS: ASPIRIN 81MG TAB.CHEW PO SCH (09:01)
[2019-07-25] MEDS: METFORMIN HCL 500 MG TABLET PO SCH ×2 (09:01→12:36)
[2019-07-25] MEDS: GLIPIZIDE 5 MG TABLET PO SCH (09:03)
[2019-07-25] MEDS: METOPROLOL TARTRATE 25 MG TAB PO SCH (09:03)
[2019-07-25] MEDS: POTASSIUM CHLORIDE 20 MEQ ERTAB PO SCH ×2 (09:04→14:00)
[2019-07-25] MEDS: FAMOTIDINE 20MG TAB 20 MG TAB PO SCH (09:05)
[2019-07-25 10:13] LABS: CREATININE 0.8 mg/dL (0.5-1.5)
[2019-07-25 11:00] VITALS: BP 115/51
--- NOTE | 2019-07-25 11:34 | NUR ---
DC PLAN SPOKE TO DAUGHTER GAVE INFO FOR DAD'S ALSO GAVE WILDER INFO TO VISIT ROOM. INFO FOR LOW TAVERA MEDS GIVEN. PATIENT IS 63 AND A RESIDENT EXPLAINED ABOUT MEDICARE AND MEDICAID AND WERE SHE NEEDED TO GO TO APPLY. Addendum: 07/25/19 at 1136 by ADRIAN LUDWIG RN CM Amended: Links added.
[2019-07-25] MEDS ORDERED: METO25 PO (13:03)
[2019-07-25] MEDS ORDERED: ATOR40TA69 PO (13:03)
[2019-07-25] MEDS ORDERED: ASPI-1005 PO (13:03)
[2019-07-25] MEDS ORDERED: GLIP5TAB11 PO (13:03)
[2019-07-25] MEDS ORDERED: FURO20TA6 PO (13:03)
[2019-07-25] MEDS ORDERED: METF-446 PO (13:03)
--- NOTE | 2019-07-25 14:55 | NUR ---
GIVEN DISMISSAL INSTRUCTIONS IN UZBE[place] TO PATIENT AND HER DAUGHTER BEN HERNANDEZ. VERBALIZED UNDERSTANDING. REMOVED SALINE LOCK FROM LEFT HAND, IV SITE WITHOUT REDNESS NOTED. REMOVED TELE PACK. GIVEN SCRIPTS TO DAUGHTER. REMOVED 3 SUTURE SETS, APPLIED STERI STRIPS.
--- NOTE | 2019-07-25 15:00 | NUR ---
TAKEN TO PRIVATE CAR ALONG WITH PERSONAL BELONGINGS VIA WHEELCHAIR BY HERBERT VIVAS. REPORTED OFF TO PRIMARY NURSE, ZO GARCÍA.
== END 2019-07-25 15:10 | disposition home or self-care (01) | DRG 233 ==
LOC: 2AH 10:17 → 2CH 18:46 → 2CV 07-19 13:13 → 2BH 07-20 05:52 → 2AH 07-23 13:43
PROVIDERS: ADMIT Internal Medicine; ATTEND Internal Medicine
PROC: 021009W Bypass Coronary Artery, One Artery from Aorta with Autologous Venous Tissue, Open Approach (ICD-10-PCS; 2019-07-19)
PROC: 06BQ4ZZ Excision of Left Saphenous Vein, Percutaneous Endoscopic Approach (ICD-10-PCS; 2019-07-19)
PROC: B2151ZZ Fluoroscopy of Left Heart using Low Osmolar Contrast (ICD-10-PCS; 2019-07-19)
PROC: 4A023N7 Measurement of Cardiac Sampling and Pressure, Left Heart, Percutaneous Approach (ICD-10-PCS; 2019-07-19)
PROC: 30233N1 Transfusion of Nonautologous Red Blood Cells into Peripheral Vein, Percutaneous Approach (ICD-10-PCS; 2019-07-19)
PROC: 02100Z9 Bypass Coronary Artery, One Artery from Left Internal Mammary, Open Approach (ICD-10-PCS; principal; 2019-07-19 16:41)
PROC: B2111ZZ Fluoroscopy of Multiple Coronary Arteries using Low Osmolar Contrast (ICD-10-PCS; 2019-07-19 16:41)
DX: I21.4 Non-ST elevation (NSTEMI) myocardial infarction (principal); I50.31 Acute diastolic (congestive) heart failure; E11.65 Type 2 diabetes mellitus with hyperglycemia; E66.9 Obesity, unspecified; E78.2 Mixed hyperlipidemia; I11.0 Hypertensive heart disease with heart failure; I25.10 Atherosclerotic heart disease of native coronary artery without angina pectoris; R00.0 Tachycardia, unspecified; R06.89 Other abnormalities of breathing; R33.9 Retention of urine, unspecified; Z68.34 Body mass index [BMI] 34.0-34.9, adult; I25.2 Old myocardial infarction; Z79.82 Long term (current) use of aspirin; Z79.899 Other long term (current) drug therapy; Z82.49 Family history of ischemic heart disease and other diseases of the circulatory system
CPT/HCPCS: 36415; 71045; 80048; 80053; 80061; 82330; 82435; 82803; 82947; 82948; 83036; 83540; 83550; 83605; 83735; 83880; 84100; 84132; 84145; 84295; 85018; 85025; 85027; 85347; 85610; 85730; 86850; 86900; 86901; 86922; 92507; 92522; 92610; 93005; 93458; 93880; 94002; 94003; 94010; 94150; 97039; 99156; 99157; A4344; A7048; C1729; C1757; C1769; G0378; J0171; J0282; J0461; J0583; J0610; J0690; J1644; J1650; J1815; J1940; J2001; J2150; J2250; J2370; J2405; J2440; J2704; J2720; J2930; J3010; J3370; J3475; J3480; J3490; J7030; J7040; J7070; J7120; P9016; P9045; P9047; Q9967

== ENCOUNTER 2020-08-11 06:47 | Day surgery (SDC) | payer OTHER ==
[2020-08-10 08:37] LABS: BASOPHILS % (AUTO) 0.6 % (0.0-5.0); EOSINOPHILS % (AUTO) 3.2 % (0.0-8.0); LYMPHOCYTES % (AUTO) 31.1 % (21.0-51.0); MEAN CORPUSCULAR HEMOGLOBIN 26.1 pg (27.0-33.0); MEAN CORPUSCULAR HGB CONC 32.1 g/dL (32.0-36.0); MEAN CORPUSCULAR VOLUME 81.2 fL (79-99); MONOCYTES % (AUTO) 7.3 % (3.0-13.0); NEUTROPHILS % (AUTO) 57.6 % (40.0-77.0); PLATELET COUNT (AUTO) 170 K/uL (130-400); RED BLOOD CELL COUNT(AUTO) 4.68 MIL/uL (4.00-5.50); WHITE BLOOD COUNT (AUTO) 6.6 K/uL (4.8-10.8)
[2020-08-10 08:45] LABS: CREATININE 0.8 mg/dL (0.5-1.5); POTASSIUM 3.9 mmol/L (3.5-5.1)
[2020-08-10 09:08] LABS: APPEARANCE,URINE Clear (CLEAR); BILIRUBIN,URINE Negative (NEGATIVE); COLOR,URINE Yellow (YELLOW); GLUCOSE, URINE (UA) Negative (NEGATIVE); KETONES,URINE Negative (NEGATIVE); LEUKOCYTE ESTERASE ,URINE Negative (NEGATIVE); NITRATE,URINE Negative (NEGATIVE); OCCULT BLOOD,URINE Negative (NEGATIVE); PROTEIN,URINE POS 1+ mg/dL (NEGATIVE)
[2020-08-10 09:45] LABS: BACTERIA,URINE Rare /HPF (None Seen); SQUAMOUS EPITHELIAL CELL,UR Rare /HPF (0-2); WBC,URINE 0-1 /HPF (0-1)
[2020-08-10 09:51] LABS: INR 1.03 (0.85-1.15); PARTIAL THROMBOPLASTIN TIME 27.9 SEC (26.3-35.5); PROTHROMBIN TIME 11.1 SEC (9.6-11.6)
[2020-08-10 09:59] VITALS: BP 135/59
--- NOTE | 2020-08-10 14:25 | NUR ---
LABS ABNORMAL LABS INCLUDING URINALYSIS REPORTED TO YANNA/DR. ROMO VIA FAX. NO NEW TELEPHONE ORDERS RECEIVED PER YANNA AT THE HEART CL[facility]IC. OK TO PROCEED WITH SCHEDULED PROCEDURE PER DR. ROMO.
[~2020-08-11] VITALS: Ht 157.5 cm; Wt 67.7 kg
[2020-08-11] VITALS (10 sets, daily range): BP systolic 119–153; BP diastolic 45–68
[~2020-08-11 06:47] MED LIST: ASPI-1005 PO; ATOR40TA69 PO; FURO20TA4 PO; GLIP5TAB11 PO; METF-446 PO; METO25 PO; NITR0.4T50 SL; ROSU20TA31 PO
[2020-08-11] MEDS ORDERED: SODIUM CHLORIDE 0.9% 1000ML 1,000 ML IV ONE (09:05)
[2020-08-11] MEDS ORDERED: NITROGLYCERIN 2 MG/VIAL VIAL IV ONE ×2 (11:02→11:19)
[2020-08-11] MEDS ORDERED: IOHEXOL-350 50ML VIAL IV ONE (11:02)
[2020-08-11] MEDS ORDERED: HEPARIN SODIUM 1000UNIT/ML 10ML VIAL ONE (11:02)
[2020-08-11] MEDS ORDERED: NICARDIPINE HCL 25 MG/10 ML ML IV ONE (11:02)
[2020-08-11] MEDS ORDERED: SODIUM BICARB 50MEQ 50ML VIAL 50 ML ONE (11:03)
[2020-08-11] MEDS ORDERED: LIDOCAINE HCL 2% 20ML ONE (11:03)
[2020-08-11] MEDS ORDERED: IOHEXOL 350 MG/ML 100ML INFUS..BTL IV ONE ×2 (11:03→13:16)
--- NOTE | 2020-08-11 12:15 | NUR ---
Bottom Painter Report given to Elin PATHAK from director of labor and delivery. A&O. Daughter at bedside. Transported to director of labor and delivery via bed stretcher.
[2020-08-11] MEDS ORDERED: FENTANYL CITRATE PF 50 MCG/1 ML 2ML VIAL ONE (12:34)
[2020-08-11] MEDS ORDERED: MIDAZOLAM HCL 1 MG/ML 2ML VIAL ONE (12:34)
--- NOTE | 2020-08-11 12:38 | NUR ---
report received report from reina cheney rn.
[2020-08-11] MEDS ORDERED: BIVALIRUDIN 250 MG/VIAL IV ONE (12:49)
--- NOTE | 2020-08-11 15:00 | NUR ---
visit: dr. mancini conversing with patient and family at present time.
--- NOTE | 2020-08-11 16:30 | NUR ---
urinary elimination / activity: assisted to standing position with no complaints of dizziness. ambulated to bathroom with a steady gait. pt voided qs yellow clear urine in toilet. assisted to recliner.
== END 2020-08-11 18:00 | disposition home or self-care (01) ==
LOC: DAH 06:47
PROVIDERS: ATTEND Internal Medicine Cardiovascular Disease
DX: I25.118 Atherosclerotic heart disease of native coronary artery with other forms of angina pectoris (principal); E11.9 Type 2 diabetes mellitus without complications; I25.2 Old myocardial infarction; E78.5 Hyperlipidemia, unspecified; E86.0 Dehydration; Z95.1 Presence of aortocoronary bypass graft; Z79.82 Long term (current) use of aspirin; Z79.01 Long term (current) use of anticoagulants; Z79.84 Long term (current) use of oral hypoglycemic drugs; Z79.899 Other long term (current) drug therapy
CPT/HCPCS: 36415; 71045; 80048; 81001; 82948 ×2; 85025; 85610; 85730; 93005; 93459; 96360; 96361; A4215; A4216; A4221; A4222; A4223 ×3; A4606; A4663; C1760; C1769; C1894 ×3; J1644 ×2; J2250; J3010; J3490 ×5; J7030; Q9965 ×3; Q9967 ×3; 99156; 99157; J0583

== ENCOUNTER → 2022-01-06 | Outpatient (CLI) | payer OTHER ==
[~2022-01-06] VITALS: Ht 157.5 cm; Wt 68.7 kg
[~2022-01-06] MED LIST changes: +0.9%NACL 1000ML 0 ML IV ONE; +0.9%NACL 1000ML 1,000 ML IV SCH; +AEC81 PO; +ATOR20TA65 PO; -ATOR40TA69 PO; +IBUP-2784 PO; +MAGN400C PO; +METF-527 PO; -METO25 PO; +METO25TA6 PO; +RANO10005 PO; +pindolol PO
[2022-01-06 09:53] LABS: BASOPHILS % (AUTO) 0.5 % (0.0-5.0); EOSINOPHILS % (AUTO) 3.9 % (0.0-8.0); HEMATOCRIT 37.7 % (36-48); LYMPHOCYTES % (AUTO) 22.7 % (21.0-51.0); MEAN CORPUSCULAR HGB CONC 31.3 g/dL (32.0-36.0); MONOCYTES % (AUTO) 8.2 % (3.0-13.0); NEUTROPHILS % (AUTO) 64.4 % (40.0-77.0); PLATELET COUNT (AUTO) 149 K/uL (130-400); RED BLOOD CELL COUNT(AUTO) 4.54 MIL/uL (4.00-5.50); RED CELL DISTRIBUTION WIDTH 13.9 % (11.0-15.5); WHITE BLOOD COUNT (AUTO) 6.1 K/uL (4.8-10.8)
[2022-01-06 09:58] LABS: CREATININE 0.8 mg/dL (0.5-1.5); POTASSIUM 4.6 mmol/L (3.5-5.1)
[2022-01-06 10:15] LABS: APPEARANCE,URINE CLEAR (CLEAR); BILIRUBIN,URINE NEGATIVE (NEGATIVE); COLOR,URINE YELLOW (YELLOW); GLUCOSE, URINE (UA) NEGATIVE (NEGATIVE); KETONES,URINE NEGATIVE (NEGATIVE); LEUKOCYTE ESTERASE ,URINE SMALL (NEGATIVE); NITRATE,URINE POSITIVE (NEGATIVE); OCCULT BLOOD,URINE NEGATIVE (NEGATIVE); PROTEIN,URINE NEGATIVE (NEGATIVE); UROBILINOGEN,URINE 0.2 mg/dL (0.2-1.0)
[2022-01-06 10:21] LABS: INR 1.06 (0.85-1.15); PROTHROMBIN TIME 11.5 SEC (9.6-11.6)
[2022-01-06 10:22] LABS: PARTIAL THROMBOPLASTIN TIME 28.8 SEC (26.3-35.5)
[2022-01-06 10:23] LABS: BACTERIA,URINE Many /HPF (None Seen); RBC,URINE 0-1 /HPF (0-1); SQUAMOUS EPITHELIAL CELL,UR Rare /HPF (0-2)
[2022-01-06 10:37] LABS: B-TYPE NATRIURETIC PEPTIDE 260 pg/mL (0-100)
== END | disposition home or self-care (01) ==
LOC: EDSTATUS 08:00 → DAH 10:00
PROVIDERS: ATTEND Internal Medicine Cardiovascular Disease
DX: Z01.810 Encounter for preprocedural cardiovascular examination (principal); I25.709 Atherosclerosis of coronary artery bypass graft(s), unspecified, with unspecified angina pectoris; Z79.01 Long term (current) use of anticoagulants; Z79.899 Other long term (current) drug therapy
CPT/HCPCS: 36415; 71045; 80048; 81001; 83880; 85025; 85610; 85730; 87077; 87088; 87186; 93005; A4606; J7030

== ENCOUNTER 2022-02-03 06:00 | Day surgery (SDC) | payer OTHER ==
[2022-02-01 11:44] LABS: BASOPHILS % (AUTO) 0.4 % (0.0-5.0); EOSINOPHILS % (AUTO) 3.2 % (0.0-8.0); HEMATOCRIT 37.4 % (36-48); MEAN CORPUSCULAR HEMOGLOBIN 25.6 pg (27.0-33.0); MEAN CORPUSCULAR VOLUME 82.6 fL (79-99); MONOCYTES % (AUTO) 8.2 % (3.0-13.0); NEUTROPHILS % (AUTO) 60.8 % (40.0-77.0); PLATELET COUNT (AUTO) 144 K/uL (130-400); RED BLOOD CELL COUNT(AUTO) 4.53 MIL/uL (4.00-5.50); RED CELL DISTRIBUTION WIDTH 14.3 % (11.0-15.5); WHITE BLOOD COUNT (AUTO) 4.7 K/uL (4.8-10.8)
[2022-02-01 11:52] LABS: APPEARANCE,URINE Clear (CLEAR); BILIRUBIN,URINE Negative (NEGATIVE); COLOR,URINE Yellow (YELLOW); GLUCOSE, URINE (UA) Negative (NEGATIVE); KETONES,URINE Negative (NEGATIVE); LEUKOCYTE ESTERASE ,URINE Small (NEGATIVE); NITRATE,URINE Positive (NEGATIVE); OCCULT BLOOD,URINE Negative (NEGATIVE); PH,URINE 6.5 (5.0-8.0); PROTEIN,URINE Negative (NEGATIVE); UROBILINOGEN,URINE 0.2 mg/dL (0.2-1.0)
[2022-02-01 11:54] LABS: CREATININE 0.9 mg/dL (0.5-1.5); POTASSIUM 4.2 mmol/L (3.5-5.1)
[2022-02-01 11:57] LABS: INR 1.01 (0.85-1.15)
[2022-02-01 11:58] LABS: B-TYPE NATRIURETIC PEPTIDE 203 pg/mL (0-100); PARTIAL THROMBOPLASTIN TIME 29.1 SEC (26.3-35.5)
[2022-02-01 12:01] LABS: BACTERIA,URINE Many /HPF (None Seen); RBC,URINE 0-1 /HPF (0-1); SQUAMOUS EPITHELIAL CELL,UR Rare /HPF (0-2); WBC,URINE 0-1 /HPF (0-1)
[2022-02-02 12:12] VITALS: BP 141/62
[~2022-02-03] VITALS: Ht 160 cm; Wt 69.1 kg
[2022-02-03] VITALS (8 sets, daily range): BP systolic 130–157; BP diastolic 57–64
[~2022-02-03 06:00] MED LIST changes: +0.9% NACL 500ML IV.SOLN 500 ML IV SCH; -0.9%NACL 1000ML 0 ML IV ONE; -0.9%NACL 1000ML 1,000 ML IV SCH; -ASPI-1005 PO; -ATOR20TA65 PO; -GLIP5TAB11 PO; -IBUP-2784 PO; -METF-446 PO; -NITR0.4T50 SL
[2022-02-03] MEDS ORDERED: 0.9%NACL 1000ML 1,000 ML IV ONE (09:04)
[2022-02-03] MEDS ORDERED: IOHEXOL-350 50ML VIAL IV ONE (10:26)
[2022-02-03] MEDS ORDERED: IOHEXOL 350 MG/ML 100ML INFUS..BTL IV ONE (10:26)
[2022-02-03] MEDS ORDERED: NITROGLYCERIN 50MG VIAL ONE (10:26)
[2022-02-03] MEDS ORDERED: FENTANYL CITRATE PF 50 MCG/1 ML 2ML VIAL ONE (10:27)
[2022-02-03] MEDS ORDERED: MIDAZOLAM HCL 1 MG/ML 2ML VIAL ONE (10:27)
[2022-02-03] MEDS ORDERED: SODIUM BICARB 50MEQ 50ML VIAL 50 ML ONE (10:28)
[2022-02-03] MEDS ORDERED: LIDOCAINE HCL 1% 10 ML VIAL ONE (10:44)
[2022-02-03] MEDS ORDERED: 0.9% NACL 500ML IV.SOLN 500 ML IV SCH (12:00)
== END 2022-02-03 16:30 | disposition home or self-care (01) ==
LOC: DAH 06:00
PROVIDERS: ATTEND Internal Medicine Cardiovascular Disease
DX: I25.119 Atherosclerotic heart disease of native coronary artery with unspecified angina pectoris (principal); I25.729 Atherosclerosis of autologous artery coronary artery bypass graft(s) with unspecified angina pectoris; I25.82 Chronic total occlusion of coronary artery; I25.2 Old myocardial infarction; E78.2 Mixed hyperlipidemia; E11.9 Type 2 diabetes mellitus without complications; Z79.01 Long term (current) use of anticoagulants; Z79.84 Long term (current) use of oral hypoglycemic drugs; Z79.82 Long term (current) use of aspirin; Z79.899 Other long term (current) drug therapy; Z82.49 Family history of ischemic heart disease and other diseases of the circulatory system
CPT/HCPCS: 36415; 71045; 80048; 81001; 83880; 85025; 85610; 85730; 87077; 87088; 87186; 93005; 93459; C1760; C1769; C1894 ×2; J1644; J2250; J3010; J3490 ×3; J7030; Q9965; Q9967; 99156; 99157

== ENCOUNTER 2023-06-08 10:54 | Observation (INO) | payer OTHER ==
[2023-06-06 09:47] LABS: BASOPHILS # (AUTO) 0.01 K/uL (0.00-0.20); BASOPHILS % (AUTO) 0.2 % (0.0-5.0); EOSINOPHILS % (AUTO) 4.7 % (0.0-8.0); HEMATOCRIT 39.5 % (36-48); IMMATURE GRANULOCYTE ABSOLUTE 0.02 K/uL (0-1); LYMPHOCYTES # (AUTO) 1.2 K/uL (1.0-4.8); LYMPHOCYTES % (AUTO) 28.5 % (21.0-51.0); MEAN CORPUSCULAR HEMOGLOBIN 25.5 pg (27.0-33.0); MEAN CORPUSCULAR HGB CONC 30.9 g/dL (32.0-36.0); MEAN CORPUSCULAR VOLUME 82.5 fL (79-99); MONOCYTES # (AUTO) 0.5 K/uL (0.1-1.0); MONOCYTES % (AUTO) 10.8 % (3.0-13.0); NEUTROPHILS # (AUTO) 2.3 K/uL (1.8-7.7); NEUTROPHILS % (AUTO) 55.3 % (40.0-77.0); PLATELET COUNT (AUTO) 163 K/uL (130-400); RED BLOOD CELL COUNT(AUTO) 4.79 MIL/uL (4.00-5.50); RED CELL DISTRIBUTION WIDTH 15.9 % (11.0-15.5); WHITE BLOOD COUNT (AUTO) 4.2 K/uL (4.8-10.8)
[2023-06-06 09:54] VITALS: BP 142/65; PULSE 71; RESP 19
[2023-06-06 09:54] LABS: POTASSIUM 4.5 mmol/L (3.5-5.1)
[2023-06-06 10:08] LABS: INR 0.96 (0.85-1.15); PROTHROMBIN TIME 11.2 SEC (9.6-11.6)
[2023-06-06 10:09] LABS: PARTIAL THROMBOPLASTIN TIME 29.5 SEC (26.3-35.5)
[2023-06-06 11:02] LABS: APPEARANCE,URINE CLEAR (CLEAR); BILIRUBIN,URINE NEGATIVE (NEGATIVE); COLOR,URINE YELLOW (YELLOW); GLUCOSE, URINE (UA) >=1000 mg/dL (NEGATIVE); KETONES,URINE NEGATIVE (NEGATIVE); LEUKOCYTE ESTERASE ,URINE 250 Leu/uL (NEGATIVE); NITRATE,URINE NEGATIVE (NEGATIVE); OCCULT BLOOD,URINE NEGATIVE (NEGATIVE); PROTEIN,URINE NEGATIVE (NEGATIVE); UROBILINOGEN,URINE 0.2 mg/dL (0.2-1.0)
[2023-06-06 11:06] LABS: ADD UA MICROSCOPIC YES
[2023-06-06 11:08] LABS: BACTERIA,URINE RARE /HPF (None Seen); MUCUS,URINE RARE LPF (None Seen); SQUAMOUS EPITHELIAL CELL,UR FEW /HPF (0-2)
[~2023-06-08] VITALS: Ht 157.5 cm; Wt 73.0 kg
[~2023-06-08 10:54] MED LIST changes: -0.9% NACL 500ML IV.SOLN 500 ML IV SCH; +ATOR40TA69 PO; +EMPA25TA PO; +IBUP-2784 PO; -MAGN400C PO; -METO25TA6 PO; +NITR0.4T50 SL; +PIND10TA2 PO; -ROSU20TA31 PO; -pindolol PO
[2023-06-08 11:04] VITALS: BP 127/58; PULSE 68; RESP 20
[2023-06-08] MEDS ORDERED: 0.9%NACL 1000ML 1,000 ML IV ONE (11:11)
[2023-06-08] MEDS ORDERED: IOHEXOL 350 MG/ML 100ML INFUS..BTL IV ONE (15:10)
[2023-06-08] MEDS ORDERED: HEPARIN 10,000 UNIT/10ML (1,000 UNIT/ML) VIAL ONE (15:10)
[2023-06-08] MEDS ORDERED: LIDOCAINE HCL 400MG/20ML VIAL ONE (15:10)
[2023-06-08] MEDS ORDERED: SODIUM BICARB 50MEQ 50ML VIAL 50 ML ONE (15:11)
[2023-06-08] MEDS ORDERED: NITROGLYCERIN 50MG/D5W 250ML 1 BOT ONE (15:11)
[2023-06-08] MEDS ORDERED: BIVALIRUDIN 250 MG/VIAL IV ONE (15:12)
[2023-06-08] MEDS ORDERED: MIDAZOLAM HCL 1 MG/ML 2ML VIAL ONE (16:17)
[2023-06-08] MEDS ORDERED: FENTANYL CITRATE PF 50 MCG/1 ML 2ML VIAL ONE (16:17)
[2023-06-08] MEDS ORDERED: ASPIRIN 325MG EC TAB PO ONE (16:48)
[2023-06-08] MEDS ORDERED: TICAGRELOR 90 MG TABLET ONE ×2 (16:48)
[2023-06-08] MEDS ORDERED: TICA90TA PO (17:43)
[2023-06-08] MEDS ORDERED: IBUPROFEN 200 MG TAB PO PRN (18:00)
[2023-06-08] MEDS ORDERED: 0.9%NACL 1000ML 1,000 ML IV SCH (18:00)
[2023-06-08] MEDS ORDERED: NITROGLYCERIN 0.4 MG SL TAB SL PRN (18:00)
[2023-06-08 18:45] VITALS: BP 152/72; PULSE 79
[2023-06-08 19:38] VITALS: BP 145/64; PULSE 74; RESP 18
[2023-06-08 20:00] VITALS: O2SAT 98
[2023-06-08] MEDS ORDERED: NON-FORMULARY MEDICATION 1 EACH (Ranolazine (Ranolazine ER) 1,000 MG) PO SCH (21:00)
[2023-06-08] MEDS ORDERED: NON-FORMULARY MEDICATION 1 EACH (Pindolol 5 MG) PO SCH (21:00)
[2023-06-08] MEDS ORDERED: ATORVASTATIN 40 MG TABLET PO SCH (21:00)
[2023-06-08] MEDS: PINDOLOL 5 MG TAB PO SCH (21:53)
[2023-06-08] MEDS: TICAGRELOR 90 MG TABLET PO SCH (21:53)
[2023-06-08] MEDS: RANOLAZINE 500 MG TAB.SR.12H PO SCH (21:54)
[2023-06-08] MEDS: FUROSEMIDE 20 MG TABLET PO SCH (21:54)
[2023-06-09 00:06] VITALS: BP 146/64; PULSE 75; RESP 18
[2023-06-09 03:41] VITALS: BP 133/66; PULSE 64; RESP 18
[2023-06-09 04:03] LABS: HEMATOCRIT 36.5 % (36-48); MEAN CORPUSCULAR HEMOGLOBIN 26.2 pg (27.0-33.0); MEAN CORPUSCULAR HGB CONC 32.3 g/dL (32.0-36.0); MEAN CORPUSCULAR VOLUME 81.1 fL (79-99); RED BLOOD CELL COUNT(AUTO) 4.5 MIL/uL (4.00-5.50); RED CELL DISTRIBUTION WIDTH 15.7 % (11.0-15.5); WHITE BLOOD COUNT (AUTO) 6.5 K/uL (4.8-10.8)
[2023-06-09 04:22] LABS: CREATININE 0.9 mg/dL (0.5-1.5); POTASSIUM 3.9 mmol/L (3.5-5.1)
[2023-06-09 07:30] VITALS: BP 127/61; PULSE 75; RESP 16
[2023-06-09 07:40] VITALS: O2SAT 98
[2023-06-09] MEDS: PINDOLOL 5 MG TAB PO SCH (08:12)
[2023-06-09] MEDS: RANOLAZINE 500 MG TAB.SR.12H PO SCH (08:12)
[2023-06-09] MEDS: FUROSEMIDE 20 MG TABLET PO SCH (08:13)
[2023-06-09] MEDS: TICAGRELOR 90 MG TABLET PO SCH (08:13)
[2023-06-09] MEDS ORDERED: ASPIRIN 81 MG EC TAB PO SCH (09:00)
[2023-06-09] MEDS ORDERED: ASPIRIN 81MG CHEW TAB PO SCH (09:00)
== END 2023-06-09 09:49 | disposition home or self-care (01) ==
LOC: DAH 10:54 → DAHIP 10:55 → DAH 10:55 → 2AH 18:13
PROVIDERS: ADMIT Internal Medicine Cardiovascular Disease; ATTEND Internal Medicine Cardiovascular Disease
DX: I20.9 Angina pectoris, unspecified (principal); Z79.899 Other long term (current) drug therapy
CPT/HCPCS: 80048 ×2; 83880; 85025; 85610; 85730; 87088; 81001; 36415 ×2; 71045; 93005 ×3; 0715T; 93454; 93571; 85347; 82948 ×3; 80061; 85027; C1894 ×2; C1874 ×2; C1760; C1761; C1887 ×2; C1769; Q9965 ×2; G0378 ×16; J3010; J3490 ×3; J7030; J1644 ×2; J2250; Q9967; A4215; A4223 ×3; A4222; A4221; A4663; A4216; A4606; C9600; C9601; 99156; 99157; J0583

== ENCOUNTER → 2024-10-14 | Outpatient (CLI) | payer OTHER ==
[~2024-10-14] MED LIST changes: +ATOR40TA71 PO; +IOHEXOL 350 MG/ML 100ML INFUS..BTL IV ONE; +PIND5 PO; +TICA90TA PO; +metoPROLOL tartRATE 1 MG/ML 5ML VIAL IV ONE
--- NOTE | 2024-10-14 12:35 | HMCIMG ---
CT CARDIAC ANGIO W/CONT. CCTA REASON: CHEST PAIN COMPARISON: None TECHNIQUE: Images are obtained through the heart in the axial plane before and during bolus IV contrast infusion, 100 cc Omnipaque 350. 2-D and 3-D multiplanar reconstruction images were then performed. The injection had to be repeated once due to motion artifact on the first sequence, total contrast volume was 200 cc. FINDINGS: This dictation is for the noncardiac findings only. Cardiac and coronary artery findings are reported separately. Visualized portions of the lungs are clear. There is normal-appearing pulmonary interstitium. There is no hilar or mediastinal lymphadenopathy. Chest wall structures appear unremarkable. IMPRESSION: 1. Unremarkable noncardiac portions of CT cardiac angiography.
--- NOTE | 2024-10-20 16:37 | CARDIOLOGY ---
RAD REPORT: [facility] CT ANGIO RADIOLOGY REPORT: CORONARY CT ANGIOGRAPHY DATE: Oct 20, 2024 QUALITY: Excellent CLINICAL HISTORY AND INDICATION: [ coronary artery bypass graft patency ] TECHNIQUE: After obtaining a preliminary emergency spill response technician image, contrast imaging performed on an Aquillon [id number] scanner. A dedicated, limited window, coronary imaging protocol was used, with single breath-hold, retrospective ECG gating, and automated arrhythmia rejection. 100 cc of low osmolar contrast agent: Omnipaque 350 was delivered via a 18-gauge IV catheter in the right antecubital fossa, using a power injector and followed by 60 cc of normal saline bolus as a chaser. Collimated images were reformatted at 0.5 mm intervals, and sent to an offline independent workstation for interpretation, using 3D anatomic reconstructions: Curved multiplanar reconstructions, maximum intensity projections, and multiplanar imaging. 10 mg IV metoprolol was administered prior to scanning. No SL nitroglycerin was given. CORONARY ARTERY DESCRIPTIONS: The coronary arteries arise in normal position. Left main coronary artery: Normal caliber vessel that bifurcates into the LAD and LCx. Occluded distal left main. Left anterior descending coronary artery: Normal caliber vessel and gives rise to diagonal and septal branches. Severe stenosis of the proximal to mid LAD. Left circumflex coronary artery: Normal caliber, nondominant and gives rise to a large OM branch. Drug eluting stent in the proximal LCx. There is severe stenosis distal to the proximal LCx stent just proximal to OM 2 stent. Drug eluting stent in the OM 2 appears patent. Right coronary artery: Large, dominant vessel giving rise to the PL and PDA branches. The RCA is tortous. BLAST FURNACE SUPERVISOR mid RCA with distal filling consistent with left to right collaterals. Patent CHEUNG to LAD. Occluded SVG to RCA. Recommend left heart cath to evaluate LCx artery. Thoracic Aorta: Normal diameter. Sydni Rosenthal MD Cardiovascular Disease [facility] SYDNI ROSENTHAL MD Oct 20, 2024 16:37
== END | disposition home or self-care (01) ==
LOC: RAH 08:48
PROVIDERS: ATTEND Student in an Organized Health Care Education/Training Program
DX: I25.10 Atherosclerotic heart disease of native coronary artery without angina pectoris (principal); I11.9 Hypertensive heart disease without heart failure; R00.2 Palpitations; R07.9 Chest pain, unspecified; Z95.1 Presence of aortocoronary bypass graft
CPT/HCPCS: 75574; J3490; Q9967

== ENCOUNTER 2025-03-13 10:34 | Day surgery (SDC) | payer OTHER ==
[2025-03-11 12:26] LABS: BASOPHILS # (AUTO) 0.02 K/uL (0.00-0.20); BASOPHILS % (AUTO) 0.3 % (0.0-5.0); EOSINOPHILS # (AUTO) 0.14 K/uL (0.00-0.70); EOSINOPHILS % (AUTO) 2.1 % (0.0-8.0); HEMATOCRIT 35.9 % (36-48); IMMATURE GRANULOCYTE ABSOLUTE 0.02 K/uL (0-1); LYMPHOCYTES # (AUTO) 1.3 K/uL (1.0-4.8); LYMPHOCYTES % (AUTO) 18.7 % (21.0-51.0); MEAN CORPUSCULAR HEMOGLOBIN 26.4 pg (27.0-33.0); MEAN CORPUSCULAR HGB CONC 32.6 g/dL (32.0-36.0); MONOCYTES # (AUTO) 0.4 K/uL (0.1-1.0); MONOCYTES % (AUTO) 5.7 % (3.0-13.0); NEUTROPHILS % (AUTO) 72.9 % (40.0-77.0); PLATELET COUNT (AUTO) 175 K/uL (130-400); RED BLOOD CELL COUNT(AUTO) 4.43 MIL/uL (4.00-5.50); RED CELL DISTRIBUTION WIDTH 14.9 % (11.0-15.5); WHITE BLOOD COUNT (AUTO) 6.8 K/uL (4.8-10.8)
[2025-03-11 12:38] VITALS: BP 166/64; PULSE 72; RESP 18; TEMP 98.1
[2025-03-11 12:43] LABS: INR 1.02 (0.85-1.15); PROTHROMBIN TIME 10.8 SEC (9.6-11.6)
[2025-03-11 12:44] LABS: PARTIAL THROMBOPLASTIN TIME 29.5 SEC (26.3-35.5)
[2025-03-11 12:53] LABS: CREATININE 0.8 mg/dL (0.5-1.0); POTASSIUM 3.9 mmol/L (3.5-5.1)
[2025-03-11 12:56] LABS: ADD UA MICROSCOPIC YES; APPEARANCE,URINE CLEAR (CLEAR); BILIRUBIN,URINE NEGATIVE (NEGATIVE); COLOR,URINE YELLOW (YELLOW); GLUCOSE, URINE (UA) >=1000 mg/dL (NEGATIVE); KETONES,URINE NEGATIVE (NEGATIVE); LEUKOCYTE ESTERASE ,URINE 25 Leu/uL (NEGATIVE); NITRATE,URINE NEGATIVE (NEGATIVE); OCCULT BLOOD,URINE NEGATIVE (NEGATIVE); PROTEIN,URINE NEGATIVE (NEGATIVE); UROBILINOGEN,URINE 0.2 mg/dL (0.2-1.0)
[2025-03-11 12:57] LABS: BACTERIA,URINE RARE /HPF (None Seen); MUCUS,URINE RARE LPF (None Seen); RBC,URINE 0-1 /HPF (0-1); SQUAMOUS EPITHELIAL CELL,UR MOD /HPF (0-2)
--- NOTE | 2025-03-11 13:11 | EKG ---
[facility] Test Date: 2025-03-11 Test Time: 12:13:07 Pat Name: AJ HERNANDEZ Department: [facility] Room: Gender: F Hat Checker: [id number] : [id number] Requested By: SHANNON JIM Order Number: [id number] Reading MD: Cristobal Arevalo Measurements Intervals [place] Rate: 67 P: 43 DE: 149 QRS: 3 QRSD: 82 T: 6 QT: 399 QTc: 422 Interpretive Statements Sinus rhythm Nonspecific STT abnormality Compared to ECG 08/02/2023 12:55:32 No significant changes Electronically Signed On 03-11-2025 18:15:36 CDT by Cristobal Arevalo Please click the below link to view image of tracing.
--- NOTE | 2025-03-11 16:06 | HMCIMG ---
CHEST 1VW HISTORY: Preop COMPARISON: August 02, 2023 FINDINGS: A frontal projection of the chest was obtained. No acute pulmonary infiltrates is seen. Poststernotomy changes are seen. The heart is enlarged. Degenerative changes of the thoracolumbar spine are present. No evidence of aortic calcification is seen. IMPRESSION: 1. No acute pulmonary infiltrate is seen.
[2025-03-13] VITALS (11 sets, daily range): BP systolic 134–203; BP diastolic 50–83; PULSE 65–79; RESP 12–18; TEMP 97.4–98.1
[~2025-03-13] VITALS: Ht 152.4 cm; Wt 69.7 kg
[~2025-03-13 10:34] MED LIST changes: -ATOR40TA71 PO; +CHOL500045 PO; -FURO20TA4 PO; -IBUP-2784 PO; -IOHEXOL 350 MG/ML 100ML INFUS..BTL IV ONE; -NITR0.4T50 SL; -PIND10TA2 PO; +PIND10TA8 PO; -PIND5 PO; +VITA100C27 PO; -metoPROLOL tartRATE 1 MG/ML 5ML VIAL IV ONE
[2025-03-13] MEDS: 0.9%NACL 1000ML 1,000 ML IV SCH (11:19)
[2025-03-13] MEDS ORDERED: LIDOCAINE HCL 400MG/20ML VIAL ONE (14:30)
[2025-03-13] MEDS ORDERED: NITROGLYCERIN 50MG VIAL ONE (14:31)
[2025-03-13] MEDS ORDERED: IOHEXOL 350 MG/ML 100ML INFUS..BTL IV ONE (14:31)
[2025-03-13] MEDS ORDERED: HEParin-NS 1,000 UNIT/500 ML 1,000 ML IV ONE (14:31)
[2025-03-13] MEDS ORDERED: HEParin 10,000 UNIT/10ML (1,000 UNIT/ML) VIAL ONE (14:31)
[2025-03-13] MEDS ORDERED: VERAPAMIL HCL 2.5 MG/ML VIAL ONE (14:32)
[2025-03-13] MEDS ORDERED: FENTanyl CITRate PF 50 MCG/1 ML 2ML VIAL ONE (14:49)
[2025-03-13] MEDS ORDERED: MIDAZOLAM HCL 1 MG/ML 2ML VIAL ONE (14:49)
[2025-03-13] MEDS ORDERED: hydrALAZine 20MG/ML VIAL ONE (15:45)
--- NOTE | 2025-03-13 15:58 | PRN ---
PROCEDURE REPORT DATE OF PROCEDURE: Mar 13, 2025 AIR SAMPLER: [Shannon Rosenthal MD ] PROCEDURE PERFORMED: Conscious sedation Ultrasound guided left radial artery access Selective left coronary artery angiogram Selective right coronary artery angiogram Left heart catheterization Left subclavian angiogram Selective CHEUNG to LAD angiogram TR band 13 sergei over left radial artery INDICATION: Abnormal CCTA DESCRIPTION OF PROCEDURE: After informed consent was obtained, the patient was prepped and draped in the usual sterile fashion. A 6 Romanian arterial sheath was inserted in the left radial artery using ultrasound guidance with first pass wall puncture. The arterial sheath was aspirated and flushed. A 5F Telensius catheter was advanced over the wire and used to perform a left subclavian angiogram and then we used this catheter to select engage the CHEUNG graft followed by multiple angiographic images. We then exchanged this catheter for a A 6 Romanian JL 3.5 was then advanced to the ascending aorta over an exchange length J-tip guidewire, was aspirated and flushed, and was used for selective coronary angiograms in multiple obliquities. A JR-4 was advanced in a similar fashion to the ascending aorta over the J-tipped guidewire and was used for selective right coronary angiograms in multiple oblique views with findings as outlined below. The JR-4 catheter advanced into the LV and pressures were obtained with a pull-back across the aortic valve. A TR band was placed over left radial artery. FLUOROSCOPY TIME: 5.6 min LEFT HEART HEMODYNAMICS: LVEDP 13 mm Hg and no gradient Ao CORONARY ANGIOGRAM: LEFT MAIN: Patent with diffuse 10-20% stenosis. Gives rise to LCx and LAD. LEFT ANTERIOR DESCENDING: Large vessel giving rise to two Diagonal branches. T heavily and diffusely calcified with subtotal 95-99% prox to mid stenosis. Competitive flow distally via patent CHEUNG graft. D1 is large with 90% proximal stenosis LEFT CIRCUMFLEX: Large and gives rise to two OM branches. There was a patent ostial to prox stent with mild 10-20% diffuse ISR. Is followed by luminal irregularities. OM1 is small. OM2 is large with a patent ostial proximal stent and KENRICK three flow. RIGHT CORONARY ARTERY: Large, dominant and highly tortuous vessel giving rise to PDA and PL branches. There are 60-70% prox to mid and mid to distal stenosis. PDA is widely patent. PLB has 60-70% proximal stenosis HEMOSTASIS: TR band 12 sergei over right left artery INTERVENTIONS: None. COMPLICATIONS: None FINDINGS: Normal coronary anatomy with multivessel CAD and patent CHEUNG to LAD graft Otherwise, patient has moderate nonobstructive CAD which we will manage medically. ESTIMATED BLOOD LOSS: 5 cc RECOMMENDATIONS/INSTRUCTIONS: Aggressive risk factor modification and optimization of GD T. If patient has worsening or ongoing symptoms we will consider staged revascularization of the RCA CONTRAST DELIVERED TO PATIENT (mL): 70cc SHANNON York MD, MD Mar 13, 2025 15:58
[2025-03-13] MEDS ORDERED: GLUCAGON 1MG KIT 1 MG ML IM PRN (16:00)
[2025-03-13] MEDS ORDERED: 0.9%NACL 1000ML 1,000 ML IV SCH (16:00)
[2025-03-13] MEDS ORDERED: DEXTROSE 50%-WATER 50 ML DISP.SYRIN IV PRN (16:00)
--- NOTE | 2025-03-13 17:00 | NUR ---
NOTED OOZING 2ML AIR INFLATED TO TR BAND LEFT RADIAL SITE STOPPED OOZING BLOOD AFTER, WILL CONTINUE TO MONITOR PT AND SITE
--- NOTE | 2025-03-13 19:30 | NUR ---
TR BAND REMOVED SITE DRESSED WITH GAUZE NO ACTIVE BLEEDING NOTED LEFT RADIAL SOFT.
--- NOTE | 2025-03-13 19:44 | NUR ---
BOTH PT AND SON GIVEN VERBAL AND WRITTEN DISCHARGE INSTRUCTIONS. IV REMOVED SITE ASYMPTOMATIC. LAP WINDER DIAGRAM EXPLAINED TO PT AND SON. PT TAKEN OUT VIA WHEELCHAIR SON DRIVING.
== END 2025-03-13 19:55 | disposition home or self-care (01) ==
LOC: DAH 10:34
PROVIDERS: ATTEND Student in an Organized Health Care Education/Training Program
DX: R93.1 Abnormal findings on diagnostic imaging of heart and coronary circulation (principal); I25.118 Atherosclerotic heart disease of native coronary artery with other forms of angina pectoris; I25.810 Atherosclerosis of coronary artery bypass graft(s) without angina pectoris; I25.84 Coronary atherosclerosis due to calcified coronary lesion; I25.2 Old myocardial infarction; E78.2 Mixed hyperlipidemia; E11.65 Type 2 diabetes mellitus with hyperglycemia; I11.9 Hypertensive heart disease without heart failure; Z95.5 Presence of coronary angioplasty implant and graft; Z79.899 Other long term (current) drug therapy; Z79.82 Long term (current) use of aspirin; Z79.84 Long term (current) use of oral hypoglycemic drugs
CPT/HCPCS: 80048; 83880; 85025; 85610; 85730; 87086; 81001; 36415; 71045; 93005; 93459; 99156; 99157 ×2; 82948; Q9965; C1769; C1887; C1894; J3010; J3490 ×3; J7030; J0360; J1644 ×2; J2250; Q9967; A4215; A4222; A4221; A4663; A4216; A4606; A4223 ×3